=== PATIENT | male | born 1990 | race Asian ===

== ENCOUNTER 2019-08-07 19:16 | Emergency (ER) | payer OTHER ==
[~2019-08-07] VITALS: Ht 175.3 cm; Wt 77.1 kg
[2019-08-07 19:18] VITALS: Ht 175.3 cm; Wt 77.1 kg
[2019-08-07 19:42] VITALS: BP 129/82
== END 2019-08-07 19:42 | disposition other institution (70) ==
LOC: ED 19:16
DX: Z02.89 Encounter for other administrative examinations (principal)